=== PATIENT | male | born 2000 | race Asian ===

== ENCOUNTER 2022-01-04 01:43 | Emergency (ER) | payer BC, SELFPAY ==
--- NOTE | 2022-01-04 01:53 | ECG_ITS ---
Measurements Intervals [place] Rate: 69 P: 70 IA: 149 QRS: -22 QRSD: 109 T: 44 QT: 397 QTc: 427 Interpretive Statements SINUS RHYTHM WITH SINUS ARRHYTHMIA BASELINE ARTIFACT- I, III, AVL, V1 NORMAL ECG NO PREVIOUS ECG AVAILABLE FOR COMPARISON Electronically Signed On 01-04-2022 6:51:36 HAND ROUNDER by Moises Calderon D.O.
[2022-01-04 01:54] VITALS: BP 116/47; PULSE 64; RESP 20; TEMP 36.6; O2SAT 100
[2022-01-04 02:10] VITALS: BP 118/63; PULSE 68; RESP 22; TEMP 36.6; O2SAT 100
--- NOTE | 2022-01-04 02:57 | ED.GENADULT ---
HPI - General Adult General Chief complaint: Alcohol Stated complaint: Vomiting, ETOH Time Seen by Provider: 01/04/22 02:09 History of Present Illness HPI narrative: this is a 21-year-old male presenting ED with alcohol intoxication, nausea vomiting and episode of palpitations. Patient has been drinking alcohol since noon today. He has had at least 7 beers and 4 [place] is. Patient started to feel unwell and then had chest tightness in the center of his chest that is nonradiating, 8 out 10 in intensity it lasted for 30 seconds before resolving on its own. Then reoccurred for 30 seconds. Patient has had this several times over the last 2 months and is currently being monitored with a Holter monitor. Patient's symptoms have since resolved. The patient is here with 2 of his friends will stay with him tonight. Related Data Allergies Allergy/AdvReac Type Severity Reaction Status Date / Time amoxicillin Allergy Rash Verified 01/04/22 02:16 azithromycin [From Zithromax] Allergy Rash Verified 01/04/22 02:16 Review of Systems Review of Systems: CONSTITUTIONAL: Denies night sweats. EYES: No eye pain ENT: Denies rhinorrhea CARDIOVASCULAR: admits palpitations RESPIRATORY: Denies hemoptysis GASTROINTESTINAL: Denies hematemesis GENITOURINARY: Denies hematuria. SKIN: Denies rash MUSCULOSKELETAL: Denies myalgia. NEUROLOGIC: Denies weakness. PSYCHIATRIC: Denies delusions Exam Narrative: APPEARANCE: No apparent distress. patient is coherent and able to hold conversation Head: atraumatic. EYES: EOMI, NOSE: Atraumatic NECK: Trachea midline RESPIRATORY: No increased rate of breathing clear auscultation bilaterally with no swelling of the lower extremities CARDIOVASCULAR: RRR, S1-S2 appreciated, no rubs murmurs or gallops. ABDOMINAL: Non-distended , soft nontender with no guarding or rebound MUSCULOSKELETAl: No obvious deformities NEURO: Alert. Moving 4/4 extremities SKIN:: Warm, dry. Normal color PSYCHIATRIC: Normal affect Course Vital Signs Vital signs: Vital Signs Temperature 97.9 F 01/04/22 01:54 Pulse Rate 64 01/04/22 01:54 Respiratory Rate 20 01/04/22 01:54 Blood Pressure 116/47 L 01/04/22 01:54 Pulse Oximetry 100 01/04/22 01:54 Oxygen Delivery Room Air 01/04/22 01:54 Temperature 98 F 01/04/22 02:10 Pulse Rate 68 01/04/22 02:10 Respiratory Rate 22 H 01/04/22 02:10 Blood Pressure 118/63 01/04/22 02:10 Pulse Oximetry 100 01/04/22 02:10 Oxygen Delivery Room Air 01/04/22 02:10 Medical Decision Making MDM Narrative Medical decision making narrative: this is a 21-year-old male presenting to ED after significant alcohol use and an episode of vomiting. He did have some palpitations during this event but they have resolved. The patient has been having these events for over 2 months and is currently wearing a Holter monitor and is well connected to the cardiology service as primary care physician. I offered to do lab work including a troponin and chest x-ray for the patient but he refused saying it has been done multiple times in the emergency room and it is always negative. He does not want that today. He was monitored during his stay in the ED and had no recurrence of his chest pain or palpitations. Upon re-evaluation he is clinically sober with a steady gait. He will be discharged into the custody of his 2 friends. Vital Signs Vital Signs: Vital Signs Temperature 97.9 F 01/04/22 01:54 Pulse Rate 64 01/04/22 01:54 Respiratory Rate 20 01/04/22 01:54 Blood Pressure 116/47 L 01/04/22 01:54 Pulse Oximetry 100 01/04/22 01:54 Oxygen Delivery Room Air 01/04/22 01:54 Temperature 98 F 01/04/22 02:10 Pulse Rate 68 01/04/22 02:10 Respiratory Rate 22 H 01/04/22 02:10 Blood Pressure 118/63 01/04/22 02:10 Pulse Oximetry 100 01/04/22 02:10 Oxygen Delivery Room Air 01/04/22 02:10 Discharge Plan Discharge Clinical Impression: Alcohol
== END 2022-01-04 03:40 | disposition home or self-care (01) ==
PROVIDERS: Emergency Provider Emergency Medicine
DX: F10.129 Alcohol abuse with intoxication, unspecified (principal); R00.2 Palpitations; R11.2 Nausea with vomiting, unspecified
CPT/HCPCS: 93005; 99283

== ENCOUNTER 2022-07-23 01:04 | Emergency (ER) | payer BC, SELFPAY ==
--- NOTE | ~2022-07-23 | XR_ITS ---
EXAMINATION: XR hand RT min 3V DATE: 07/23/2022 01:27 INDICATION: Laceration of right hand second digit. TECHNIQUE: 3 views of right hand were obtained. COMPARISON: None. FINDINGS: Bone alignment is normal. No fracture. Joint spaces are well maintained. IMPRESSION: 1. No fracture or radiopaque foreign body. Reviewed, dictated and finalized at location A.
[2022-07-23 01:11] VITALS: BP 139/59; PULSE 86; RESP 16; TEMP 36.7; O2SAT 98
[2022-07-23] MEDS: LIDOCAINE, EPINEPHRINE, TETRACAINE VISCOUS SOLN 3 ML TOPICAL (01:22)
--- NOTE | 2022-07-23 01:37 | ED.WOUNDLAC ---
HPI - Wound/Laceration General Chief Complaint: Wound/Laceration Stated Complaint: right index finger laceration, dirty knife Time Seen by Provider: 07/23/22 01:09 History of Present Illness HPI narrative: This is a 22-year-old male, who denies significant past medical history who presents to the emergency department after accidentally cutting his right index finger. The patient states he was opening a box with a knife, when it slipped and he cut his finger. He is not sure of his last tetanus vaccination. He complains of 5/10 right finger pain when bending. Related Data Home Medications Medication Instructions Recorded Confirmed lisdexamfetamine 50 mg capsule 50 mg PO DAILY 03/02/22 03/02/22 (Vyvanse) Allergies Allergy/AdvReac Type Severity Reaction Status Date / Time amoxicillin Allergy Rash Verified 07/23/22 01:05 azithromycin [From Zithromax] Allergy Rash Verified 07/23/22 01:05 Review of Systems Review of Systems: CONSTITUTIONAL: Denies fever, chills, or sweats. CARDIOVASCULAR: Denies chest pain, palpitations, or edema. RESPIRATORY: Denies cough or dyspnea. GASTROINTESTINAL: Denies abdominal pain, nausea, vomiting, or diarrhea. MUSCULOSKELETAL: Right index finger pain denies back pain, or myalgia. NEUROLOGIC: Denies headache, numbness, dizziness, or weakness. PSYCHIATRIC: Denies anxiety or depression. [facility] Social History Social History (Updated 07/23/22 @ 01:39 by Yaniv Day MD) Smoking status: Never smoker Alcohol intake: never Substance use: never Exam Narrative: GENERAL: Well-developed, well-nourished, and in no acute distress. HEAD: Normocephalic, atraumatic. EYES: PERRLA and EOMI. CHEST: Clear to auscultation. No respiratory distress. No wheezes rales or rhonchi HEART: Regular rate and rhythm. No murmur heard. Normal peripheral pulses. ABDOMEN: Soft, nontender, nondistended, normal active bowel sounds. EXTREMITIES: A 1 cm diameter laceration is noted over the dorsal aspect of the right index finger, just distal to the MCP. There is a nearly removed flap of skin. There is no obvious exposed bone. Range of motion of the right index finger is intact. Normal range of motion of all other extremities. No edema. NEURO: No focal deficits. Alert and oriented x3. Sensation intact. Freelance Programmer/App Developer strength intact PSYCH: Normal mood and affect. Course Course Emergency Course: 01:40 - My review of the patient's x-ray is not concerning for fracture or retained foreign object. I discussed treatment options with the patient including suture of remaining skin for Biopatch versus application of Xeroform gauze. The patient elected the latter. 02:15 - Flap of skin removed. See procedure note. The wound was bandaged with Xeroform and splinted for wound protection. The patient's tetanus vaccination was updated today. Discussed return and emergency precautions including signs/symptoms of wound infection and neurovascular compromise. The patient voiced understanding and is comfortable with the plan. All questions answered to his satisfaction. Vital Signs Vital signs: Vital Signs Temperature 98.1 F 07/23/22 01:11 Pulse Rate 86 07/23/22 01:11 Respiratory Rate 16 07/23/22 01:11 Blood Pressure 139/59 L 07/23/22 01:11 Pulse Oximetry 98 07/23/22 01:11 Oxygen Delivery Room Air 07/23/22 01:11 Temperature 98.1 F 07/23/22 01:11 Pulse Rate 86 07/23/22 01:11 Respiratory Rate 16 07/23/22 01:11 Blood Pressure 139/59 L 07/23/22 01:11 Pulse Oximetry 98 07/23/22 01:11 Oxygen Delivery Room Air 07/23/22 01:11 Procedures Laceration Laceration 1: Date: 07/23/22 Time: 02:15 Site: hand (Index finger) Side (If applicable): right Size (cm): 1 Description: flap (Circular) Depth: simple, single layer Pre-repair: wound explored, irrigated and wound margins revised ====== Skin Level ====== ====== [place]
[2022-07-23] MEDS: TETANUS,DIPHTHERIA,AC PERTUSSIS ADULT (0.5 ML) BOOSTRIX IM (03:05)
== END 2022-07-23 03:14 | disposition home or self-care (01) ==
PROVIDERS: Emergency Provider Preventive Medicine Aerospace Medicine
DX: S61.210A Laceration without foreign body of right index finger without damage to nail, initial encounter (principal); W26.0XXA Contact with knife, initial encounter; Z23 Encounter for immunization
CPT/HCPCS: 73130; 90471; 90715; 99283

== ENCOUNTER 2023-01-09 21:00 | Emergency (ER) | payer BC, SELFPAY ==
--- NOTE | ~2023-01-09 | CT_ITS ---
CT of the Abdomen and Pelvis: Indication: Abdominal pain Technique: 2.5 mm axial scans were obtained through the abdomen and pelvis following intravenous adm inistration of 100 cc of Omnipaque 350. Dose reduction technique was used on this scan by utilizing a utomated exposure control and iterative reconstruction technique. The dose-length product (DLP) was 4 07.69 mGy-cm. Findings: Scans through the lung bases demonstrate 4 mm right middle lobe pulmonary nodule, and 3 mm right lower lobe pulmonary nodule. The liver, spleen, pancreas, gallbladder, adrenals and kidneys are within normal limits. No evidence of aortic aneurysm. No lymphadenopathy. No bowel obstruction or bowel wall thickening. There is no evidence to suggest acute appendicitis. Images through the pelvis were performed. Urinary bladder unremarkable. No pelvic mass seen. No ascit es. Impression: No acute abnormality. Subcentimeter pulmonary nodules at the right lung base, as detailed above. According to Fleischner So [facility] criteria, for a low-risk patient, no further follow-up required. For a high-risk patient, consi thu 12 month follow-up CT. Reviewed, dictated and finalized at [facility]. [employer] Impression: No acute abnormality. Subcentimeter pulmonary nodules at the right lung base, as detailed above. Acco rding to Fleischner Society criteria, for a low-risk patient, no further follow -up required. For a high-risk patient, consider 12 month follow-up CT.
[2023-01-09 21:35] VITALS: BP 142/73; PULSE 77; RESP 16; TEMP 37.7; O2SAT 98
[2023-01-09 21:55] LABS: Basophils Percent Auto 0.1 % (0.2-1.2); Eosinophils Percent Auto 0.3 % (0-4.4); Hematocrit 45.7 % (42.0-52.0); Hemoglobin 15.4 g/dL (14.0-18.0); Immature Granulocyte Absolute 0.04 K/mm3 (0.00-0.031); Immature Granulocyte Percent A 0.3 % (0-0.5); Lymphocytes Absolute Auto 0.57 K/mm3 (0.9-3.2); Lymphocytes Percent Auto 3.9 % (18.3-44.2); Mean Corpuscular HGB Conc 33.7 g/dl (32-36); Mean Platelet Volume 9.2 fl (7.4-10.4); Monocytes Absolute Auto 0.5 K/mm3 (0.1-0.6); Monocytes Percent Auto 3.4 % (2.6-8.5); Neutrophils Absolute Auto 13.3 K/mm3 (1.3-6.7); Platelet Count Result 247 k/mm3 (150-375); Red Blood Count 4.97 M/mm3 (4.6-6.20); Red Cell Distribution Width 11.9 % (11.5-14.5); White Blood Count 14.5 K/mm3 (4.5-10.0)
[2023-01-09 22:01] LABS: Appearance Urine Clear (Clear); Bacteria Urine None Seen /hpf; Bilirubin Urine Negative (Negative); Color Urine Yellow (Yellow); Glucose Urine UA Negative (Negative); Ketones Urine Negative (Negative); Leukocyte Esterase Ur Negative LEU/UL (Negative); Nitrate Urine Negative (Negative); Non Pathogenic Casts 0-2; Protein Urine Negative (Negative); RBC Urine 0-2 /hpf (0-2); Specific Grav Ur 1.021 (1.001-1.035); Squamous Epithelial Cell Urine None seen /hpf (Few); WBC Urine 0-5 /hpf; pH Urine 5.5 (5.0-9.0)
[2023-01-09 22:08] LABS: Alanine Aminotransferase 36 U/L (6-50); Albumin Level 4.6 g/dL (3.5-5.1); Alkaline Phosphatase 66 U/L (38-126); Anion Gap 9 mmol/L (8-16); Aspartate Amino Transferase 25 U/L (17-59); Blood Urea Nitrogen 15 mg/dL (9-20); Calcium 9.6 mg/dL (8.4-10.2); Carbon Dioxide 27 mmol/L (22-30); Chloride 100 mmol/L (98-107); Estimated CRCL calculation 131 ml/min; Estimated Glomerular Filt Rate > 60; Glucose 106 mg/dL (65-110); Lipase 42 U/L (23-300); Potassium 3.6 mmol/L (3.4-5.0); Sodium 136 mmol/L (137-145)
[2023-01-09 22:09] LABS: Add Urine Microscopic? YES
[2023-01-09 22:13] VITALS: BP 111/64; BP 127/75; PULSE 68; PULSE 90
[2023-01-09 22:14] VITALS: BP 123/68; PULSE 87
[2023-01-09 23:22] VITALS: BP 117/62; PULSE 73; RESP 19; TEMP 37.6; O2SAT 98
[2023-01-09] MEDS: ONDANSETRON INJ 4 MG/2 ML VIAL IV PUSH (23:22)
[2023-01-09] MEDS: SODIUM CHLORIDE 0.9% IV 1,000 ML 999 ML IV CONT (23:22)
--- NOTE | 2023-01-10 00:05 | ED.NAVMDI ---
HPI - Nausea/Vomiting/Diarrhea General Chief complaint: Nausea/Vomiting/Diarrhea Stated complaint: Back pain, I think it's my kidney N/V Time Seen by Provider: 01/09/23 22:19 Source: patient Mode of arrival: ambulatory Limitations: no limitations History of Present Illness HPI Narrative: This is a 22 year old male that presents to the ER for abdominal pain and vomiting. Ongoing since yesterday. Reports he has not been able to keep much down which prompted him to be seen. Reports achy back pain. Denies fever, cough, congestion, diarrhea, dysuria or hematuria. Related Data Home Medications Medication Instructions Recorded Confirmed lisdexamfetamine 50 mg capsule 50 mg PO DAILY 03/02/22 03/02/22 (Vyvanse) Allergies Allergy/AdvReac Type Severity Reaction Status Date / Time amoxicillin Allergy Rash Verified 01/09/23 21:38 azithromycin [From Zithromax] Allergy Rash Verified 01/09/23 21:38 Review of Systems Review of Systems: CONSTITUTIONAL: Denies fever ENT: Denies rhinorrhea, congestion, sore throat CARDIOVASCULAR: Denies chest pain RESPIRATORY: Denies cough or dyspnea. GASTROINTESTINAL: Reports abdominal pain, nausea, vomiting. Denies diarrhea. GENITOURINARY: Denies dysuria or hematuria. MUSCULOSKELETAL: Reports back pain, and myalgia. All systems reviewed & are unremarkable except as noted in HPI and below PMFSH Past Medical History Medical History (Updated 01/10/23 @ 01:30 by Sulema Hirsch PA-C) No active medical problems Social History Social History (Updated 07/23/22 @ 01:39 by Yanvi Day MD) Smoking status: Never smoker Alcohol intake: never Substance use: never Exam Narrative: GENERAL: Well-appearing, well-nourished, and in no acute distress. HEAD: Normocephalic, atraumatic. EYES: EOMI. ENT: Nares clear, no rhinorrhea or epistaxis. Mucous membranes moist. CHEST: Clear to auscultation. No respiratory distress. No wheezes rales or rhonchi HEART: Regular rate and rhythm. No murmur heard. Normal peripheral pulses. ABDOMEN: Soft, nondistended, normal active bowel sounds. Mild tenderness to palpation throughout the mid abdomen, without guarding. No CVA tenderness EXTREMITIES: Normal range of motion. No edema. SKIN: Warm, dry, no rash. NEURO: No focal deficits. Alert and oriented x3. PSYCH: Normal mood and affect Course Course Emergency Course: Patient and family updated on workup and agree with plan of care Vital Signs Vital signs: Vital Signs Temperature 99.9 F H 01/09/23 21:35 Pulse Rate 77 01/09/23 21:35 Respiratory Rate 16 01/09/23 21:35 Blood Pressure 142/73 H 01/09/23 21:35 Pulse Oximetry 98 01/09/23 21:35 Oxygen Delivery Room Air 01/09/23 21:35 Temperature 99.7 F H 01/09/23 23:22 Pulse Rate 73 01/09/23 23:22 Respiratory Rate 19 01/09/23 23:22 Blood Pressure 117/62 01/09/23 23:22 Pulse Oximetry 98 01/09/23 23:22 Oxygen Delivery Room Air 01/09/23 21:35 MDM - Nausea/Vomiting/Diarrhea MDM Narrative Medical decision making narrative: Patient presents to the emergency department for abdominal pain, nausea and vomiting ongoing since yesterday. Also reporting some myalgias. He is afebrile and nontoxic-appearing. Vitals are stable. CBC with leukocytosis to 14.5. Metabolic panel and lipase without concerning findings. UA without evidence of infection. CT scan of the abdomen and pelvis without acute findings. COVID and influenza screen negative. Patient and family updated on workup. He is now resting comfortably. Able to tolerate PO challenge. He is to follow up with PCP. He was given warnings to return to the ER Differential Diagnosis Differential diagnosis: Likely food poisoning, gastroenteritis, dehydration and other (gastritis, COVID, Flu, biliary colic) Lab Data Attestation: I reviewed the patient's lab results. 01/09/23 21:43 01/09/23 21:43 Labs: Lab Results 01/09/2301/09
[2023-01-10] MEDS: KETOROLAC 15 MG/ML VIAL (*BKC) IV PUSH (00:48)
[2023-01-10 01:05] LABS: Influenza A QL RT-PCR Negative (Negative); Influenza B QL RT-PCR Negative (Negative); SARS-CoV-2 RNA PCR Negative (Negative)
== END 2023-01-10 02:30 | disposition home or self-care (01) ==
PROVIDERS: Emergency Medicine; Emergency Provider Physician Assistant
DX: K52.9 Noninfective gastroenteritis and colitis, unspecified (principal); Z20.822 Contact with and (suspected) exposure to COVID-19
CPT/HCPCS: 36415; 74177; 80053; 81001; 83690; 85025; 87636; 96361; 96374; 96375; 99284; J1885; J2405; J7030; Q9967

== ENCOUNTER 2023-12-20 01:25 | Inpatient (IN) | payer BC, SELFPAY ==
[2023-12-20] VITALS (13 sets, daily range): BP systolic 116–144; BP diastolic 52–90; PULSE 56–87; RESP 12–18; TEMP 36.3–37.1; O2SAT 98–100; BMI 25.2
--- NOTE | ~2023-12-20 | CT_ITS ---
EXAMINATION: CT abdomen pelvis w con DATE: 12/20/2023 02:57 INDICATION: Right lower quadrant abdominal pain. TECHNIQUE: Computed tomography (CT) of the abdomen and pelvis was performed with 100 mL Omnipaque 350 intravenous contrast. Automated exposure control and iterative reconstruction technique were employe d. The dose-length product was 382.15 mGy-cm. COMPARISON: CT abdomen and pelvis 01/09/2023 FINDINGS: The visualized portions of the lung bases demonstrate a stable 5 mm nodule in right middle lobe, likely benign. No pleural effusion. The heart size is normal. No pericardial effusion. The live r, gallbladder, spleen, pancreas, adrenal glands, and kidneys are normal. The appendix is fluid-fille d and dilated to 9 mm with adjacent fat stranding, consistent with appendicitis. There are no patholo gically enlarged lymph nodes. There is physiologic fluid in the pelvis. There is mild thoracic spondy losis. IMPRESSION: 1. Acute appendicitis. Reviewed, dictated and finalized at location A. IMPRESSION: 1. Acute appendicitis.
[2023-12-20 01:53] LABS: Basophils Absolute Auto 0.1 K/mm3 (0.0-0.1); Basophils Percent Auto 0.3 % (0.2-1.2); Eosinophils Absolute Auto 0.2 K/mm3 (0-0.3); Eosinophils Percent Auto 0.9 % (0-4.4); Hematocrit 44.9 % (42.0-52.0); Hemoglobin 15.9 g/dL (14.0-18.0); Immature Granulocyte Absolute 0.06 K/mm3 (0.00-0.031); Immature Granulocyte Percent A 0.3 % (0-0.5); Lymphocytes Absolute Auto 1.75 K/mm3 (0.9-3.2); Lymphocytes Percent Auto 9.8 % (18.3-44.2); Mean Corpuscular HGB Conc 35.4 g/dl (32-36); Mean Corpuscular Hemoglobin 31.9 pg (26-34); Mean Corpuscular Volume 90.2 fl (80-100); Mean Platelet Volume 9.6 fl (7.4-10.4); Monocytes Absolute Auto 1.1 K/mm3 (0.1-0.6); Monocytes Percent Auto 6.1 % (2.6-8.5); Neutrophils Absolute Auto 14.7 K/mm3 (1.3-6.7); Neutrophils Percent Auto 82.6 % (45.5-73.1); Platelet Count Result 239 k/mm3 (150-375); Red Blood Count 4.98 M/mm3 (4.6-6.20); Red Cell Distribution Width 10.9 % (11.5-14.5); White Blood Count 17.8 K/mm3 (4.5-10.0)
--- NOTE | 2023-12-20 02:22 | ED.ABDPAIN ---
HPI - Abdominal Pain General Chief Complaint: Abdominal Pain Stated Complaint: right lower abdominal pain Time Seen by Provider: 12/20/23 01:48 History of Present Illness HPI narrative: Patient is a 23-year-old male who presents to the emergency department this evening complaining of right lower quadrant abdominal pain. Patient states the pain started earlier in the evening around 8:00 p.m. with periumbilical pain that localized to the right lower quadrant. Denies any similar symptoms in the past. Denies any previous abdominal surgeries. Denies any urinary symptoms including dysuria or hematuria and denies any history of kidney stones. Patient admits to mild nausea but believes that that was associated with the pain. Denies any vomiting episodes. Denies any fevers or chills. No additional symptoms or concerns at this time. Related Data Home Medications Medication Instructions Recorded Confirmed lisdexamfetamine 50 mg capsule 50 mg PO DAILY 03/02/22 03/02/22 (Vyvanse) Allergies Allergy/AdvReac Type Severity Reaction Status Date / Time amoxicillin Allergy Rash Verified 01/09/23 21:38 azithromycin [From Zithromax] Allergy Rash Verified 01/09/23 21:38 Review of Systems Review of Systems: All systems are reviewed and are negative unless stated otherwise in the HPI. [facility] Past Medical History Medical History No active medical problems Social History Social History Smoking status: Never smoker Alcohol intake: never Substance use: never Exam Narrative: General: Alert, awake, afebrile, in no acute distress. HEENT: PERRL, no rhinorrhea, no post nasal drip, oropharynx clear. Cardiovascular: Regular rate and rhythm, no murmurs, rubs or gallops, no peripheral edema. Respiratory: Clear to auscultation bilaterally, no tachypnea, no wheezing, no rhonchi, no rubs, no respiratory distress. Abdomen: Soft, tenderness to palpation over the right lower quadrant with positive McBurney's sign and guarding, nondistended, no rebound, no peritoneal signs. Musculoskeletal: No joint swelling or deformity, normal muscle tone. Skin: No rashes or petechia, no signs of infection. Neurological: Alert and oriented to person, place, and time. Follows all commands. No focal deficits, speech is clear and fluent. Course Vital Signs Vital signs: Vital Signs Pulse Rate 87 12/20/23 05:08 Respiratory Rate 18 12/20/23 05:08 Blood Pressure 122/90 12/20/23 05:08 Pulse Oximetry 99 12/20/23 05:08 Pulse Rate 87 12/20/23 05:08 Respiratory Rate 18 12/20/23 05:08 Blood Pressure 122/90 12/20/23 05:08 Pulse Oximetry 99 12/20/23 05:08 MDM - Abdominal Pain MDM Narrative Medical decision making narrative: The patient was evaluated by myself in the emergency department. History is obtained from patient who is an independent historian and physical exam was performed. External medical records were reviewed at this time. IV was established and pertinent tests were ordered. Patient was administered 15 mg of IV Toradol, 4 mg of IV morphine and 4 mg of IV Zofran and 1 L IV fluid bolus with normal saline. Laboratory results obtained revealing a leukocytosis of 17.8, AST 147, ALT 88 otherwise unremarkable. Urinalysis revealed 1+ ketones otherwise unremarkable. Imaging studies obtained included CT abdomen and pelvis with IV contrast which was independently interpreted by me revealing an acute appendicitis with dilated inflamed appendix measuring up to 9 mm, no evidence of perforation or abscess, which is pending final radiology interpretation. At this time patient was made NPO, started on maintenance fluids with LR at a rate of 100 cc/hour and antibiotics with IV Zosyn. Patient and family member present at bedside were updated regarding these findings. Case was discussed with the on-call general
[2023-12-20 02:28] LABS: Add Urine Microscopic? NO; Appearance Urine Clear (Clear); Bilirubin Urine Negative (Negative); Blood Urine Negative (Negative); Color Urine Yellow (Yellow); Glucose Urine UA Negative (Negative); Ketones Urine 1+ mg/dL (Negative); Leukocyte Esterase Ur Negative LEU/UL (Negative); Nitrate Urine Negative (Negative); Protein Urine Negative (Negative); Specific Grav Ur 1.022 (1.001-1.035); Urobilinogen Urine 0.2 mg/dL (<2.0); pH Urine 6.5 (5.0-9.0)
[2023-12-20 02:35] LABS: Alanine Aminotransferase 88 U/L (6-50); Albumin Level 4.9 g/dL (3.5-5.1); Alkaline Phosphatase 64 U/L (38-126); Anion Gap 12 mmol/L (4-12); Aspartate Amino Transferase 147 U/L (17-59); Bilirubin,Total 0.9 mg/dL (0.2-1.3); Blood Urea Nitrogen 21 mg/dL (9-20); Calcium 9.4 mg/dL (8.4-10.2); Carbon Dioxide 28 mmol/L (22-30); Chloride 98 mmol/L (98-107); Estimated CRCL calculation 117 ml/min; Estimated Glomerular Filt Rate > 60; Glucose 93 mg/dL (65-110); Lipase 38 U/L (23-300); Potassium 3.7 mmol/L (3.4-5.0); Sodium 138 mmol/L (137-145)
[2023-12-20] MEDS: KETOROLAC 15 MG/ML VIAL (*BKC) IV PUSH (02:43)
[2023-12-20] MEDS: SODIUM CHLORIDE 0.9% IV 1,000 ML 999 ML IV CONT (02:43)
[2023-12-20] MEDS: LACTATED RINGERS 1,000 ML 100 ML IV CONT (05:39)
[2023-12-20] MEDS: MORPHINE SULFATE (*CRX) 4 MG/ML INJ IV PUSH ×2 (05:39→15:03)
[2023-12-20] MEDS: ONDANSETRON INJ 4 MG/2 ML VIAL IV PUSH (05:39)
[2023-12-20] MEDS: levoFLOXacin 750 MG/D5W 150 ML 750 MG/150 ML BAG 100 MG IVPB (05:46)
--- NOTE | 2023-12-20 05:47 | PC.NURSE ---
This Rn checked with [employer] if lactated ringers and levo are compatible and [employer] states they are IV compatible. THis RN checked with Dr. Barone and she states she does not want blood cultures drawn before starting IV antibiotics.
--- NOTE | 2023-12-20 06:38 | ADMGEN ---
This patient, Adan Birmingham, was admitted to 3 [facility] Surg Room 310-01 at 0625. Patient/family oriented to hospital policies and general routines including ID bracelet, bed and alarms, visiting hours, pain management, procedures, bathroom and other care routines, personal items, smoking policy, room service/diet, and visiting hours. Information on how to activate the Rapid Response Team has been discussed. Patient/Family are encouraged to report perceived risks to care and to ask questions if they do not understand what they are told or what they should do.
[2023-12-20] MEDS: HYDROmorphone HCL INJ (*CRX) 1 MG/ML SYR IV PUSH (07:15)
[2023-12-20] MEDS: metroNIDAZOLE 500 MG/ISO 100ML 500 MG/100 ML BAG 100 MG IVPB (07:16)
--- NOTE | 2023-12-20 07:55 | PC.NURSE ---
To OR via stretcher.
--- NOTE | 2023-12-20 08:08 | WPDANESEPPF ---
Anes - Initial Pre Proc Eval Procedure: Operation Date: 12/20/23 13:45 Proposed Procedures p Laparoscopic Appendectomy, Possible Open - Jordna Gomez DO Date/Time: 12/20/23 08:08 Surgeon: Jordan Gomez DO Pre Op Diagnosis: Acute appendicitis Patient Data Age: 23 Gender: M Height: 1.78 m Weight: 79.7 kg Last Vital Signs Temp 37.1 C 12/20/23 06:36 Pulse 58 L 12/20/23 06:36 Resp 16 12/20/23 06:36 BP 122/64 12/20/23 06:36 Pulse Ox 98 12/20/23 06:36 Allergies Allergy/AdvReac Type Severity Reaction Status Date / Time amoxicillin Allergy Rash Verified 01/09/23 21:38 azithromycin [From Zithromax] Allergy Rash Verified 01/09/23 21:38 camphor [From Biofreeze] AdvReac Rash Verified 12/20/23 06:55 menthol [From Icy Hot] AdvReac Rash Verified 12/20/23 06:55 methyl salicylate AdvReac Rash Verified 12/20/23 06:55 [From Icy Hot] Home Medications Medication Instructions Recorded Confirmed Type No Home Medications 12/20/23 12/20/23 History Laboratory Tests 12/20/23 12/20/23 01:47 02:22 WBC 17.8 H K/mm3 (4.5-10.0) RBC 4.98 M/mm3 (4.6-6.20) Hgb 15.9 g/dL (14.0-18.0) Hct 44.9 % (42.0-52.0) MCV 90.2 fl (80-100) MCH 31.9 pg (26-34) MCHC 35.4 g/dl (32-36) RDW 10.9 L % (11.5-14.5) Plt Count 239 k/mm3 (150-375) MPV 9.6 fl (7.4-10.4) Immature Gran % (Auto) 0.3 % (0-0.5) Neut % (Auto) 82.6 H % (45.5-73.1) Lymph % (Auto) 9.8 L % (18.3-44.2) [place] % (Auto) 6.1 % (2.6-8.5) Eos % (Auto) 0.9 % (0-4.4) Baso % (Auto) 0.3 % (0.2-1.2) Lymph # (Auto) 1.75 K/mm3 (0.9-3.2) [place] # (Auto) 1.1 H K/mm3 (0.1-0.6) Eos # (Auto) 0.2 K/mm3 (0-0.3) Baso # (Auto) 0.1 K/mm3 (0.0-0.1) Abs Immat Gran (auto) 0.06 H K/mm3 (0.00-0.031) Absolute Neuts (auto) 14.7 H K/mm3 (1.3-6.7) Absolute Nucleated RBC 0.000 K/mm3 (0.0-0.012) Nucleated RBC % 0.0 % (0.0-0.2) Sodium 138 mmol/L (137-145) Potassium 3.7 mmol/L (3.4-5.0) Chloride 98 mmol/L (98-107) Carbon Dioxide 28 mmol/L (22-30) Anion Gap 12 mmol/L (4-12) BUN 21 H mg/dL (9-20) Creatinine 0.90 mg/dL (0.7-1.3) Estim Creat Clear Calc 117 ml/min Estimated GFR > 60 (59 - ) Glucose 93 mg/dL (65-110) Calcium 9.4 mg/dL (8.4-10.2) Total Bilirubin 0.9 mg/dL (0.2-1.3) AST 147 H U/L (17-59) ALT 88 H U/L (6-50) Alkaline Phosphatase 64 U/L (38-126) Total Protein 9.0 H g/dL (6.3-8.2) Albumin 4.9 g/dL (3.5-5.1) Lipase 38 U/L (23-300) Urine Color Yellow (Yellow) Urine Appearance Clear (Clear) Urine pH 6.5 (5.0-9.0) Ur Specific [place] 1.022 (1.001-1.035) Urine Protein Negative mg/dL (Negative) Urine Glucose (UA) Negative mg/dL (Negative) Urine Ketones 1+ H mg/dL (Negative) Ur Blood (Man) Negative (Negative) Urine Nitrate Negative (Negative) Urine Bilirubin Negative (Negative) Urine Urobilinogen 0.2 mg/dL (<2.0) Leukocyte Esterase Rfl Negative BAHRTI/UL (Negative) Patient hx anesthesia problems: none Family hx anesthesia problems: none Results Review: All pre-operative results and documents have been reviewed as part of the pre-operative evaluation. [facility] Past Medical History Medical History (Updated 12/20/23 @ 08:08 by Jenaro Irvin MD) Acute appendicitis Social History Social History Smoking status: Never smoker Alcohol intake: current Substance use: former Substance use type: marijuana and prescription drug Do You Feel Safe in your Home?: Yes Lack of Transportation: No Lack of Food: Never True Current Sudhakar
[2023-12-20] MEDS: fentaNYL CITRATE INJ (*CRX) 100 MCG/2 ML VIAL 50 MCG IV PUSH (08:15)
[2023-12-20] MEDS: LACTATED RINGERS 1,000 ML 30 ML IV CONT (08:15)
--- NOTE | 2023-12-20 08:27 | WPDHPUPDATE1 ---
History and Physical Update Update Date/Time: 12/20/23 08:27 History and Physical has been reviewed, including an updated exam of the patient. There are NO changes in the patient's condition. Risks, benefits, and alternatives have been discussed and questions answered. Patient agrees to proceed with procedure.
--- NOTE | 2023-12-20 08:27 | PM.IMHP ---
H&P: HPI History of Present Illness Date/Time: 12/20/23 08:27 Chief Complaint: Right lower quadrant pain Narrative: This is a 23-year-old man who presented to the emergency department overnight with right lower quadrant pain that started yesterday. He began experiencing pain in the mid abdomen and then throughout the day it became worse localized to the right lower quadrant. He had 1 episode of nausea and vomiting. He denied any fevers. He has never had symptoms like this in the past. Review of Systems Review of Systems: All systems reviewed & are unremarkable except as noted in HPI and below Eyes: Eyes: Denies change in vision ENT: Denies hearing loss, Denies neck pain and Denies sore throat Cardiovascular: Cardiovascular: Denies chest pain and Denies dyspnea Respiratory: Respiratory: Denies cough, Denies dyspnea and Denies wheezing Gastrointestinal: Gastrointestinal: Reports as per HPI Genitourinary: Genitourinary: Denies hematuria and Denies dysuria Musculoskeletal: Musculoskeletal: Denies arthralgias, Denies joint swelling and Denies neck pain Allergic/Immunologic: Allergic/Immunologic: Denies wheezing [facility] Past Medical History Medical History (Updated 12/20/23 @ 08:29 by Jordan Gomez DO) Acute appendicitis Surgical History Surgical History (Updated 12/20/23 @ 08:28 by Jordan Gomez DO) Hx of wisdom tooth extraction Family History Family History (Updated 12/20/23 @ 08:28 by Jordan Gomez DO) Other No significant family history Social History Social History Smoking status: Never smoker Alcohol intake: current Substance use: former Substance use type: marijuana and prescription drug Do You Feel Safe in your Home?: Yes Lack of Transportation: No Lack of Food: Never True Current Housing: I Have Housing Concerned About Future Housing: No Difficulty Paying Gas/Electric Bills: No Difficulty Paying for Meds: No Currently Unemployed: YES Education: Bachelor's Degree Difficulty w/ Childcare or Family Care: No Spiritual care concerns: No Meds Home Medications and Allergies Home Medications Medication Instructions Recorded Confirmed Type No Home Medications 12/20/23 12/20/23 History Allergies Allergy/AdvReac Type Severity Reaction Status Date / Time amoxicillin Allergy Rash Verified 01/09/23 21:38 azithromycin [From Zithromax] Allergy Rash Verified 01/09/23 21:38 camphor [From Biofreeze] AdvReac Rash Verified 12/20/23 06:55 menthol [From Icy Hot] AdvReac Rash Verified 12/20/23 06:55 methyl salicylate AdvReac Rash Verified 12/20/23 06:55 [From Icy Hot] Vital Signs Vital Signs - 24 hr 12/20/23 05:08 12/20/23 06:36 Temperature 98.7 F Pulse Rate 87 58 L Respiratory Rate 18 16 Blood Pressure 122/90 122/64 Pulse Oximetry 99 98 Exam Const: General: alert; No acute distress Orientation/consciousness: patient oriented x3 Limitations: no limitations HENMT: Head: normocephalic and atraumatic Ears: hearing grossly normal bilaterally Face/Nose/Sinus: Normal external nose present and Normal nares present Mouth: Yes Normal oral and palatal mucosa present and Yes moist mucous membranes Eyes: General: appearance normal, both eyes and all related structures Conjunctivae: conjunctivae normal Sclera: sclerae normal Pupils: Equal, round and reactive pupils present EOM: EOMs intact bilaterally Neck: Neck: normal visual inspection, full ROM, no lymphadenopathy, supple and no JVD Lymphatic: no lymphadenopathy noted Chest: Chest palpation & inspection: normal inspection of the chest Resp: Effort & Inspection: normal respiratory effort and able to speak in complete sentences Auscultation: clear to auscultation bilaterally Percussion: percussion normal Cardio: Jugular venous distension: no JVD Rate: regular rate Rhythm: regular rhythm Heart sounds: S1 normal hear
[2023-12-20] MEDS: BUPIVACAINE/EPINEPHRINE 0.5% 50 ML VIAL 20 ML INFILTRATE (09:02)
--- NOTE | 2023-12-20 09:26 | W.PM.PROC2 ---
Procedure Note - Detailed Date of Procedure 12/20/23 Pre-op Diagnosis Acute appendicitis Post-op Diagnosis Same Procedure Performed Laparoscopic appendectomy Surgeon Jordan Gomez, DO Anesthesia General and Local (0.5% bupivacaine with epinephrine) Indications This is a 23-year-old man who presented to the emergency department overnight with right lower quadrant pain. He had an elevated white blood count and CT showed evidence of acute appendicitis. Discussions were made with the patient about treatment options and decision was made to proceed with laparoscopic appendectomy, possible open. Findings Laparoscopic appendectomy was performed. The appendix appeared dilated and indurated, but there was no evidence of perforation or abscess. The base of the appendix appeared healthy and viable. The appendix was removed and sent to the lab for pathology. Description of Procedure Procedure as well as risks, benefits, and alternatives were explained to the patient. The patient agreed to proceed. Written consent was obtained and placed in chart prior to procedure. The patient was brought back to surgical suite. He was placed supine on operating table. Time-out was done to confirm the patient and procedure. The patient was then intubated by the Anesthesia Department. His abdomen was prepped and draped in sterile fashion using chlorhexidine prep. A 12 mm incision was made at the inferior portion of the umbilicus. Blunt dissection was carried out down to the linea alba. The linea alba was then incised using a 15 blade scalpel. Then bluntly entered into the peritoneal cavity. A 12 mm trocar was then inserted, and carbon dioxide insufflation was used to create a pneumoperitoneum. The camera was inserted and the abdomen was inspected. No immediate abnormalities were identified. The patient was then placed in slight Trendelenburg position and rotated to the left. A 5 mm incision was made in the suprapubic region in midline and a 5 mm trocar was inserted under direct visualization. A 5 mm incision was made in the left lower quadrant and a 5 mm trocar was inserted under direct visualization. The right lower quadrant was carefully inspected. The cecum was identified and then this was traced back to the appendix. The appendix was identified and grasped at the mesoappendix and lifted anteriorly. Careful blunt dissection was carried out at the base of the appendix through the mesoappendix using a [place] grasper. An Endo-AN 45 mm blue load stapler was then advanced across the base of the appendix and clamped and fired. A white reload was then clamped across the mesoappendix and fired. This freed up our appendix completely. It was then placed in an EndoCatch bag and removed through the umbilical port. The staple lines were then inspected. There was some bleeding along the mesoappendix staple line which was controlled with a [place] grasper with electrocautery. Hemostasis then appeared adequate and the staple lines appeared secure. The area was then irrigated with sterile saline. The pelvis was then carefully inspected and irrigated with sterile saline as well and the remainder of the abdomen was carefully inspected. The patient was then flattened out in bed. One final inspection was made around the abdominal cavity and no other abnormalities were seen. The ports were then removed under direct visualization. The camera was removed and the pneumoperitoneum was released. The fascia of the umbilical incision was reapproximated using an 0 Vicryl [id number] suture. 0.5% bupivacaine with epinephrine was infiltrated locally around each of the incisions. The skin of the incisions was then approximated using 4-0 Monocryl subcuticular suture and Exofin glue was applied on top. The patient was then awakened from anesthesia, extubated, and transferred to Recovery. Estimated Blood Loss 5 Pathology Yes (Appendix) Complications No immediate complications Con
[2023-12-20] MEDS: fentaNYL CITRATE INJ (*CRX) 100 MCG/2 ML VIAL 25 MCG IV PUSH ×4 (09:43→10:01)
[2023-12-20] MEDS: HYDROcodone/acetaminophen (*CRX) 5-325 MG TABLET 1 TAB PO ×2 (10:38→21:19)
[2023-12-20] MEDS: IBUPROFEN 600 MG TABLET PO (12:02)
[2023-12-20] MEDS: HYDROcodone/acetaminophen (*CRX) 7.5-325 MG TABLET 1 TAB PO (13:30)
[2023-12-20] MEDS: IBUPROFEN IV 800 MG/200 ML 800 MG/200 ML BAG 400 MG IVPB (16:47)
--- NOTE | 2023-12-20 21:27 | PC.NURSE ---
pt was going to discharge earlier today but due to pain decided to hold off on dc until tomorrow. At shift change pt up walking the halls for about 2 hours and stated he is feeling much better and would like to be discharged tonight. Dr Gomez called and I confirmed that since pt doing well he can discharge. Dr Gomez's only concern was that Rx would not be able to be picked up until tomorrow but agreed that as long as the patient understood that he was good with the discharge. Spoke with pt and pt's mom about my call with the doctor and the mom stated that she had already went and picked up the rx. Discharge disposition was printed, explained to the pt and then signed. PCT took pt down to main lobby for pickup, mom will be driving them home.
--- NOTE | 2023-12-20 21:45 | PM.DS ---
DS: Admitting Diagnosis Discharge Date 12/20/23 Admitting Diagnosis Acute appendicitis DS: Discharge Diagnosis Discharge Diagnosis (1) Acute appendicitis: Qualifiers: Acute appendicitis type: with localized peritonitis Appendicitis abscess presence: unspecified whether abscess present Appendicitis gangrene presence: unspecified whether gangrene present Appendicitis perforation presence: unspecified whether perforation present Qualified Code(s): K35.30 - Acute appendicitis with localized peritonitis, without perforation or gangrene Code(s): K35.80 - Unspecified acute appendicitis Status: Acute DS: Summary Hospital Course Reason for hospitalization: Acute appendicitis Hospital Course: This is a 23-year-old man who presented to the emergency department on 12/20/2023 with right lower quadrant pain. He was found to have an elevated white blood count and CT showed evidence of acute appendicitis. He was started on Zosyn and placed in observation for further treatment. Discussions were made with the patient about treatment options and decision was made to proceed with laparoscopic appendectomy. He underwent laparoscopic appendectomy on 12/19/2022. Surgery was uncomplicated and he was returned to the surgical floor postoperatively. Initially he was experiencing significant pain postoperatively, but throughout the day his pain continued to improve and he was remaining hemodynamically stable. He was tolerating a regular diet and ambulating in the halls. That evening he felt comfortable to go home. He was discharged on 12/20/2023. Status at Discharge Functional status at discharge: independent ambulation Overall status at discharge: patient is progressing back to baseline Time Spent with Patient Time attestation: Total time spent providing and/or coordinating discharge services: Time spent: Less than 30 minutes Exam Const: General: comfortable and no acute distress GI: Inspection: incision (intact with glue) GI Palp: Yes Soft to palpation and Yes Tenderness to palpation present (GI) (incisional) DS: Data Data Completed and Pending Completed studies during hospitalization: Pending at discharge 12/20/23 09:08 Surgical [PTH] Routine Discharge Plan Discharge Attending physician on discharge: Jordan Vidal Consulting providers: Jordan Vidal; Jenaro Irvin; Hal Thorne V. Discharging Clinician: Jordan Vidal Anticipated Discharge Date/Time: 12/20/23 13:00 Patient Disposition: Home, Self-Care Activity: other - see discharge instructions Diet: regular Wound Care Instructions: other - see discharge instructions Discharge Instructions: DISCHARGE INSTRUCTION SHEET FOR HERNIA, GALLBLADDER AND APPENDIX SURGERIES DR. VIDAL PATIENT TO TAKE HOME 1. May shower in 24 hours, no soaking in bath x 2weeks. 2. Call office for: Wound increasingly painful or bleeding Vomiting Fever of greater than 101 degrees 3. If no bowel movement for three days, take 1 oz. (30 ml) Milk of Magnesia or MiraLax 17g 1 to 2 times daily. 4. No heavy lifting > 10-15 pounds x weeks for hernia repairs and 2 weeks for laparoscopic cholecystectomy or appendectomy. 5. No driving for 3 days or while taking narcotic pain medications. 6. Ice to surgical site for 48 hours (30 min on, then 30 min off). 7. Up walking 10-30 minutes three times per day. 8. Resume previous home medications. 9. Follow-up 10-14 days in office for wound check or as previously scheduled. ([phone]) 10. Oral pain medications prescription to be sent to pharmacy. Take Tylenol 500mg every 6 hours and Ibuprofen 600mg every 6 hours for the first 2 days, then as needed. 11. NUTRITION: Start out by drinking fluids and increase your diet as tolerated. If you experience nausea, try dry toast, crackers, and 7-UP. If nausea or vomiting persists
== END 2023-12-20 21:33 | disposition home or self-care (01) | DRG 399 ==
LOC: ANHED 05:24 → ANH3MEDSUR 06:03
PROVIDERS: Admitting Provider Surgery; Emergency Provider Emergency Medicine; Visit Provider Surgery
PROC: 0DTJ4ZZ Resection of Appendix, Percutaneous Endoscopic Approach (ICD-10-PCS; CPT 44970; principal; 2023-12-20 08:30)
DX: K35.80 Unspecified acute appendicitis (principal)
CPT/HCPCS: 36415; 74177; 80053; 81003; 83690; 85025; 88304; 96361; 96374; 96375; 99285; A9270; J0330; J1100; J1171; J1741; J1836; J1885; J1956; J2250; J2270; J2405; J2704; J3010; J7030; J7120; Q9967

== ENCOUNTER 2024-04-10 12:31 | Emergency (ER) | payer BC, SELFPAY ==
[2024-04-10 12:39] VITALS: BP 132/95; PULSE 61; RESP 16; TEMP 37.2; O2SAT 98
--- NOTE | 2024-04-10 12:44 | ED_ITS ---
HPI - Abdominal Pain General Chief Complaint: Abdominal Pain Stated Complaint: Stomach Pain Source: patient and RN notes reviewed Mode of arrival: ambulatory Limitations: no limitations History of Present Illness HPI narrative: 23 y/o male presented for c/o n/v/d. Onset 1 hour [employer]. Endorses epigastric discomfort, back ache and some chills. Denies cough, wheezing, fever or lethargy. Not taking anything for symptoms. Says everyone at his job is sick. hx appy Related Data Allergies Allergy/AdvReac Type Severity Reaction Status Date / Time amoxicillin Allergy Rash Verified 04/10/24 12:35 azithromycin (From Zithromax) Allergy Rash Verified 04/10/24 12:35 camphor (From Biofreeze) AdvReac Rash Verified 04/10/24 12:35 menthol (From Icy Hot) AdvReac Rash Verified 04/10/24 12:35 methyl salicylate (From Icy AdvReac Rash Verified 04/10/24 12:35 Hot) Review of Systems Review of Systems: ROS per HPI All systems reviewed & are unremarkable except as noted in HPI and below PMFSH Past Medical History Medical History Acute appendicitis Surgical History Surgical History Hx of wisdom tooth extraction Family History Family History Other No significant family history Social History Social History Smoking status: Never smoker Alcohol intake: current Substance use: former Substance use type: marijuana and prescription drug Current Housing: Decline to Answer Concerned About Future Housing: Decline to Answer Difficulty Paying Gas/Electric Bills: Decline to Answer Difficulty Paying for Meds: Decline to Answer Currently Unemployed: Decline to Answer Education: Decline to Answer Difficulty w/ Childcare or Family Care: Decline to Answer Spiritual care concerns: No Comments At time of signature, I have reviewed and agree with nursing past medical, surgical, social and family history unless otherwise noted. Please see nursing chart for further information. There is no relevant family history pertinent to the presenting complaint Exam Narrative: GENERAL: mildly ill-appearing, and in no acute distress. ENT: Mucous membranes pink and moist. CHEST: No respiratory distress. Clear to auscultation. HEART: Regular rate and rhythm. No murmur appreciated. Normal peripheral pulses. ABDOMEN: abd soft, nondistended, normal active bowel sounds. Nontender abdomen; No guarding, rebound tenderness, asymmetry EXTREMITIES: Normal range of motion. No edema. SKIN: Warm, dry, no rash. Capillary refill normal. Normal skin turgor. NEURO: No focal deficits. Alert and oriented x3. PSYCH: Normal affect. Course Course Emergency Course: Patient is aware of diagnosis, understands and agrees to treatment plan. Anticipatory guidance given. Patient agrees to follow-up as directed and is aware of reasons to seek care at the emergency department. Portions of this record may have been created with voice recognition software Level of Care: Express Care Visit Vital Signs Vital signs: Vital Signs Temperature 99 F 04/10/24 12:39 Pulse Rate 61 04/10/24 12:39 Respiratory Rate 16 04/10/24 12:39 Blood Pressure 132/95 H 04/10/24 12:39 Pulse Oximetry 98 04/10/24 12:39 Temperature 99 F 04/10/24 12:39 Pulse Rate 61 04/10/24 12:39 Respiratory Rate 16 04/10/24 12:39 Blood Pressure 132/95 H 04/10/24 12:39 Pulse Oximetry 98 04/10/24 12:39 MDM - Abdominal Pain MDM Narrative Medical decision making narrative: Discussed physical exam findings. Negative flu COVID, likely too early to detect. Rx ondansetron. Advised supportive measures and signs/symptoms to go to the ER. Pt is appropriate for outpt treatment and f/u. Differential Diagnosis Differential diagnosis: Likely abdominal pain, acute appendicitis, calculus of kidney, constipation, diverticulitis, gastroenteritis, pancreatitis, small bowel obstruction and other Lab Data Labs: Lab Results 04/10/24 Range/Units 12:59 POC Influenza A Ag Negative (Negative) POC Influenza B Ag Negative (Negative) POC SARS CoV-2 Ag Negative (Negative) Discharge Plan Discharge Clinical Impression: Viral infection Patient Disposition: Home, Self-Care Condition: Stable Instructions: Gastroenteritis (ED) Additional Instructions: Flu COVID negative today. It may be too early to detect the virus, therefore we recommend retesting at home in 1-2 days Continue to follow general precautions: frequent handwashing, wear a mask, is olate/social distance, and avoid crowds if you have a fever. You must be fever free for 24 hours without the use of fever reducing medication (Tylenol/ibuprofen) before returning to work/school/crowds. if symptoms are due to a viral illness, it is not treated with antibiotics. Viral symptoms can be present for up to 10-14 days. Recommend Flonase spray and Zyrtec for sinus congestion Cough syrup may cause drowsiness; avoid driving or take it at night time. Tylenol every 8 hours as needed for pain/fever Soft foods, cool liquids, warm tea. Gargle with warm saltwater twice a day. Chloraseptic spray and throat lozenges. Rest and stay hydrated. --Follow up with your PCP --Go to the ER immediately if you cannot swallow your saliva, trouble breathing/wheezing, throat swelling, pain is persistent and severe Patient Language: Kazakh Prescriptions: New ondansetron 4 mg tablet,disintegrating 4 mg PO Q8H PRN (Reason: nausea and vomiting) Qty: 7 0RF No Action triamcinolone acetonide 0.1 % cream 1 applic topical BID PRN (Reason: Eczema) Qty: 30 0RF Follow-up/Referrals: PHYSICIAN,ASSISTANT BRANCH MANAGER [Primary Care Provider] - Stand Alone Forms: Work/School Release IP Time of Disposition: 13:03
[2024-04-10 13:01] LABS: EDCOVIDSCREEN Negative (Negative); EDINFLUASCREEN Negative (Negative); EDINFLUBSCREEN Negative (Negative)
== END 2024-04-10 13:05 | disposition home or self-care (01) ==
PROVIDERS: Emergency Provider Nurse Practitioner Family
DX: B34.9 Viral infection, unspecified (principal); Z20.822 Contact with and (suspected) exposure to COVID-19
CPT/HCPCS: 87426; 87804; 99213; G0463

== ENCOUNTER 2024-07-14 09:57 | Emergency (ER) | payer BC, SELFPAY ==
[2024-07-14 10:06] VITALS: BP 132/81; PULSE 67; RESP 16; TEMP 36.7; O2SAT 100
--- NOTE | 2024-07-14 10:08 | ED.EYEPROB ---
HPI - Eye Problem General Chief complaint: Eye Problems Stated complaint: L EYE REDNESS Time Seen by Provider: 07/14/24 10:08 Source: patient Mode of arrival: ambulatory Limitations: no limitations History of Present Illness HPI Narrative: 24 y/o male presented for c/o left eye irritation for 5 days. States he has left eye lid swelling, redness, and tenderness to the lower lid. Endorses frequent tearing and eye looks blood shot. Denies vision changes, photophobia, FB sensation or eye injury. Pt has used warm compresses, cold compresses and otc eye drops. Says he had something similar 2 years ago. chief complaint: eye pain Related Data Home Medications Medication Instructions Recorded Confirmed Last Taken Type Fish Oil 07/14/24 Unknown History Vitamin C 07/14/24 Unknown History Vitamin D3 07/14/24 Unknown History finasteride 1 mg tablet mg 07/14/24 Unknown History methylprednisolone 4 mg tablets in mg 07/14/24 Unknown History a dose pack quetiapine 25 mg tablet mg 07/14/24 Unknown History zaleplon 5 mg capsule mg 07/14/24 Unknown History Allergies Allergy/AdvReac Type Severity Reaction Status Date / Time amoxicillin Allergy Rash Verified 07/14/24 10:06 azithromycin (From Zithromax) Allergy Rash Verified 07/14/24 10:06 camphor (From Biofreeze) AdvReac Rash Verified 07/14/24 10:06 menthol (From Icy Hot) AdvReac Rash Verified 07/14/24 10:06 methyl salicylate (From Icy AdvReac Rash Verified 07/14/24 10:06 Hot) Review of Systems Review of Systems: CONSTITUTIONAL: Denies body aches, fever, chills EYES:Endorses swelling, redness and pain to left eye; Denies visual changes FB sensation, photophobia ENT: Denies rhinorrhea, congestion, sore throat, or otalgia. CARDIOVASCULAR: Denies chest pain, palpitations RESPIRATORY: Denies cough or dyspnea. GASTROINTESTINAL: Denies abdominal pain, nausea, vomiting, or diarrhea. SKIN: Denies rash, itching, or wounds. MUSCULOSKELETAL: Denies back pain, joint pain, or myalgia. NEUROLOGIC: Denies headache, numbness, tingling, or weakness. All systems reviewed & are unremarkable except as noted in HPI and below PMFSH Past Medical History Medical History Acute appendicitis Surgical History Surgical History Hx of wisdom tooth extraction Family History Family History Other No significant family history Social History Social History Smoking status: Never smoker Alcohol intake: current Substance use: former Substance use type: marijuana and prescription drug Current Housing: Decline to Answer Concerned About Future Housing: Decline to Answer Difficulty Paying Gas/Electric Bills: Decline to Answer Difficulty Paying for Meds: Decline to Answer Currently Unemployed: Decline to Answer Education: Decline to Answer Difficulty w/ Childcare or Family Care: Decline to Answer Spiritual care concerns: No Comments At time of signature, I have reviewed and agree with nursing past medical, surgical, social and family history unless otherwise noted. Please see nursing chart for further information. There is no relevant family history pertinent to the presenting complaint Exam Narrative: GENERAL: Well-appearing HEAD: Normocephalic, atraumatic. EYES: Left conjunctival injection, mild left eye lid swelling and redness, tender. No apparent hordeolum. PERRLA, EOMI. Lid eversion shows no FB ENT: Mucous membranes pink and moist. No rhinorrhea. TMs normal bilaterally. Throat normal. Uvula midline. CHEST: Clear to auscultation. HEART: Regular rate and rhythm. SKIN: Warm, dry, no rash. Normal skin turgor. NEURO: No focal deficits. Alert and oriented x3 PSYCH: Normal affect. Course Course Emergency Course: Patient is aware of diagnosis, understands and agrees to treatment plan. Anticipatory guidance given. Patient agrees to follow-up as directed and is aware of reasons to seek care at the emergency department. Portions of this record may have been created with voice recognition software Level of Care: Express Care Visit Vital Signs Vital signs: Vital Signs Temperature 98.1 F 07/14/24 10:06 Pulse Rate 67 07/14/24 10:06 Respiratory Rate 16 07/14/24 10:06 Blood Pressure 132/81 07/14/24 10:06 Pulse Oximetry 100 07/14/24 10:06 Temperature 98.1 F 07/14/24 10:06 Pulse Rate 67 07/14/24 10:06 Respiratory Rate 16 07/14/24 10:06 Blood Pressure 132/81 07/14/24 10:06 Pulse Oximetry 100 07/14/24 10:06 MDM - Eye Problem MDM Narrative Medical decision making narrative: Discussed physical exam findings c/w conjunctivitis vs stye. No apparent hordeolum noted, but tender to medial lower lid. Advised supportive measures and signs/symptoms to go to the ER. Pt is appropriate for outpt treatment and f/u. Differential Diagnosis Differential diagnosis: Likely corneal abrasion, conjunctivitis, acute iritis and other Discharge Plan Discharge Clinical Impression: Bacterial conjunctivitis Patient Disposition: Home Condition: Stable Instructions: Antibiotic Form, Stye (ED), Conjunctivitis (ED) Additional Instructions: Avoid touching or rubbing your eye. Use over the counter lubricating eye drops as needed for irritation Use a warm or cool washcloth on your eye for comfort Use eyedrops as directed - you are contagious for 24 hours after starting the antibiotic Practice good handwashing and hygiene to prevent spread of infection You may take Tylenol or ibuprofen for pain Apply warm, moist compresses on the affected area frequently (for 5 to 10 minutes three to five times per day) in order to help with drainage. Massage and gentle wiping of the affected eyelid after the warm compress can also help with drainage. You can use baby shampoo to wash the eye area Take medication as directed. Follow-up with PCP or retail sales assistant if condition is not improving in 2-3days. Go to the emergency room if you have severe pain or pressure behind your eye, difficulty seeing, or other severe symptoms Patient Language: [place] Prescriptions: New polymyxin B sulf-trimethoprim 10,000 unit- 1 mg/mL drops 1 drp LEFT EYE Q3H 7 Days Qty: 10 0RF Rx Instructions: while awake; do not exceed 6 doses in 24 hours No Action quetiapine 25 mg tablet zaleplon 5 mg capsule methylprednisolone 4 mg tablets,dose pack finasteride 1 mg tablet Fish Oil Vitamin D3 Vitamin C Follow-up/Referrals: PHYSICIAN,REAL ESTATE TEACHER [Primary Care Provider] - Time of Disposition: 10:28
== END 2024-07-14 10:28 | disposition home or self-care (01) ==
PROVIDERS: Emergency Provider Nurse Practitioner Family
DX: H10.9 Unspecified conjunctivitis (principal)
CPT/HCPCS: 99213; G0463